=== PATIENT | male | born 1990 | race Caucasian/White ===

== ENCOUNTER 2017-06-07 08:18 | Emergency (ER) | payer OTHER ==
[~2017-06-07] VITALS: Ht 180.3 cm; Wt 93.0 kg
[2017-06-07] MEDS ORDERED: NS IV 1000 ML 1,000 ML IV SCH (09:15)
[2017-06-07] MEDS ORDERED: ONDANSETRON 4 MG/2 ML (SDV) Z0FRAN IVP ONE (09:15)
[2017-06-07] MEDS ORDERED: NS 100 ML (IVPB) BAG IV ONE (09:30)
[2017-06-07] MEDS ORDERED: IOHEXOL 350 MG/ML 100 ML (OMNIPAQUE 350) VIAL IV ONE (09:30)
[2017-06-07 09:31] LABS: BASOPHILS % (AUTO) 0 % (0-10); EOSINOPHILS # (AUTO) 0.1 10^3/uL (0.0-0.3); EOSINOPHILS % (AUTO) 1 % (0-10); HEMATOCRIT 44 % (40-54); HEMOGLOBIN 15.5 G/DL (13.3-17.7); LYMPHOCYTES # (AUTO) 1.2 X 10^3 (1.0-4.0); LYMPHOCYTES % (AUTO) 10 % (12-44); MEAN CORPUSCULAR HEMOGLOBIN 31 PG (25-34); MEAN CORPUSCULAR HGB CONC 35 G/DL (32-36); MEAN CORPUSCULAR VOLUME 87 FL (80-99); MEAN PLATELET VOLUME 9.6 FL (7.4-10.4); MONOCYTES # (AUTO) 0.6 X 10^3 (0.0-1.0); MONOCYTES % (AUTO) 5 % (0-12); NEUTROPHILS # (AUTO) 9.9 X 10^3 (1.8-7.8); NEUTROPHILS % (AUTO) 84 % (42-75); PLATELET COUNT 241 10^3/uL (130-400); RED BLOOD COUNT 5.05 10^6/uL (4.35-5.85); WHITE BLOOD COUNT 11.8 10^3/uL (4.3-11.0)
[2017-06-07 09:51] LABS: ALANINE AMINOTRANSFERASE 22 U/L (0-55); ALBUMIN 4.6 GM/DL (3.2-4.5); ALKALINE PHOSPHATASE 62 U/L (40-136); AMYLASE 42 U/L (25-125); BILIRUBIN,TOTAL 0.5 MG/DL (0.1-1.0); BUN/CREATININE RATIO 8; CALCIUM 9.8 MG/DL (8.5-10.1); CARBON DIOXIDE 26 MMOL/L (21-32); CHLORIDE 104 MMOL/L (98-107); CREATININE SERUM 1.32 MG/DL (0.60-1.30); GFR ESTIMATED > 60; GLUCOSE 120 MG/DL (70-105); POTASSIUM 4.7 MMOL/L (3.6-5.0); SODIUM 138 MMOL/L (135-145); TOTAL PROTEIN 7.9 GM/DL (6.4-8.2)
--- NOTE | 2017-06-07 10:29 | Diagnostic Imaging Report ---
PROCEDURE: CT abdomen and pelvis with contrast. TECHNIQUE: Multiple contiguous axial images were obtained through the abdomen and pelvis after administration of intravenous contrast. INDICATION: Left-sided abdominal pain. COMPARISON: None available. FINDINGS: Lower chest: The lung bases are clear. No pericardial or pleural effusion. Peritoneum: No free intraperitoneal air or fluid. Liver and biliary system: The liver is normal. The gallbladder is normal. No biliary duct dilation. Spleen and Pancreas: Spleen is normal. The pancreas enhances normally without mass lesion or peripancreatic inflammatory changes. Adrenals: Normal. tract: Mild to moderate left hydronephrosis and mild left hydroureter secondary to a 5 mm obstructing stone in the distal right ureter. Delayed enhancement and excretion in the left kidney is compatible with obstruction. The stone is located approximately 2-3 cm above the UVJ. There are potential additional bilateral nonobstructing renal calculi although this could represent early excretion of contrast material into the renal calyces. Prostate is normal. GI tract: Stomach is decompressed. No bowel obstruction. No pericolonic inflammatory changes. Normal appendix. Vasculature and Lymph nodes: Normal caliber aorta. No abdominal or pelvic lymphadenopathy. Musculoskeletal: No concerning osseous lesion. IMPRESSION: 1. Mild to moderate left hydronephrosis and hydroureter secondary to a 5 mm obstructing stone in the distal left ureter. The left kidney has delayed enhancement and excretion suggestive of potential high-grade obstruction. 2. There are potential additional nonobstructing bilateral renal stones, although these hyperdense foci could be due to early excretion of contrast material into the renal calyces. Dictated by: Dictated on workstation # [id number]
[2017-06-07] MEDS ORDERED: fentaNYL INJECTION 100 MCG/2 ML AMP IVP ONE (11:00)
[2017-06-07] MEDS ORDERED: cefTRIAXone INJECTION 1,000 MG in NS (IVPB) 50 ML IV ONE (11:00)
[2017-06-07] MEDS ORDERED: KETOROLAC 30 MG/ML VIAL IVP ONE (11:00)
[2017-06-07 11:03] LABS: BILIRUBIN,URINE NEGATIVE (NEGATIVE); CLARITY,URINE CLEAR; COLOR,URINE YELLOW; GLUCOSE, URINE (UA) NEGATIVE (NEGATIVE); KETONES,URINE NEGATIVE (NEGATIVE); LEUKOCYTE ESTERASE ,URINE NEGATIVE (NEGATIVE); NITRITE,URINE NEGATIVE (NEGATIVE); PH,URINE 8 (5-9); PROTEIN,URINE NEGATIVE (NEGATIVE); UROBILINOGEN,URINE NORMAL (NORMAL)
--- NOTE | 2017-06-07 11:04 | ED Abdominal Pain ---
General Chief Complaint: Abdominal/GI Problems Stated Complaint: STOMACH PAIN SINCE 3 AM Nursing Triage Note: Pt reports increasing abdominal pain with emesis the last 2 nights. Denies fever/chills. Sepsis Screen: No Definite Risk Source of Information: Patient Exam Limitations: No Limitations History of Present Illness Date Seen by Provider: Jun 07, 2017 Time Seen by Provider: 10:56 Initial Comments This 26-year-old male presents with complaint of abdominal pain with associated emesis for the last 2 nights he has had no associated fever or chills dysuria hematuria shortness of breath cough headache or stiff neck. Patient denies similar episodes in the past. Allergies and Home Medications Allergies Coded Allergies: No Known Drug Allergies (Unverified , 06/07/17) Review of Systems Constitutional: No chills, No fever EENTM: No Blurred Vision Respiratory: Denies Cough Cardiovascular: Denies Chest Pain Gastrointestinal: Abdominal Pain, Nausea, Vomiting Musculoskeletal: No back pain Skin: No rash Psychiatric/Neurological: No Symptoms Reported Endocrine: No Symptoms Reported Hematologic/Lymphatic: No Symptoms Reported Past Guwxobl-Jgajbc-Rhette Hx Patient Social History Alcohol Use: Occasionally Uses Recreational Drug Use: No Smoking Status: Current Everyday Smoker Recent Foreign Travel: No Contact w/Someone Who Travel: No Recent Infectious Disease Expo: No Surgeries History of Surgeries: No Respiratory History of Respiratory Disorde: No Cardiovascular History of Cardiac Disorders: No Neurological History of Neurological Disord: No Genitourinary History of Genitourinary Disor: No Gastrointestinal History of Gastrointestinal Di: No Musculoskeletal History of Musculoskeletal Dis: No Endocrine History of Endocrine Disorders: No HEENT History of HEENT Disorders: No Cancer History of Cancer: No Psychosocial History of Psychiatric Problem: No Integumentary History of Skin or Integumenta: No Blood Transfusions History of Blood Disorders: No Reviewed Nursing Assessment Reviewed/Agree w Nursing PMH: Yes Physical Exam Vital Signs VS - Last 72 Hours, by Label 06/07/17 06/07/17 06/07/17 08:41 11:11 11:11 Temp 97.2 97.2 97.2 Pulse 68 Resp 18 B/P (MAP) 131/94 (106) Pulse Ox 98 O2 Delivery Room Air Capillary Refill : Less Than 3 Seconds General Appearance: WD/WN, mild distress HEENT: normal ENT inspection Neck: normal inspection Respiratory: normal breath sounds Cardiovascular: regular rate, rhythm Gastrointestinal: normal bowel sounds, non tender, soft Extremities: normal range of motion, non-tender Back: normal inspection Neurologic/Psychiatric: no motor/sensory deficits, alert Skin: normal color, warm/dry Progress/Results/Core Measures Results/Orders Lab Results Laboratory Tests Test 06/07/17 09:20 06/07/17 10:57 Range/Units White Blood Count 11.8 H 4.3-11.0 10^3/uL Red Blood Count 5.05 4.35-5.85 10^6/uL Hemoglobin 15.5 13.3-17.7 G/DL Hematocrit 44 40-54 % Mean Corpuscular Volume 87 80-99 FL Mean Corpuscular Hemoglobin 31 25-34 PG Mean Corpuscular Hemoglobin Concent 35 32-36 G/DL Red Cell Distribution Width 12.0 10.0-14.5 % Platelet Count 241 130-400 10^3/uL Mean Platelet Volume 9.6 7.4-10.4 FL Neutrophils (%) (Auto) 84 H 42-75 % Lymphocytes (%) (Auto) 10 L 12-44 % Monocytes (%) (Auto) 5 0-12 % Eosinophils (%) (Auto) 1 0-10 % Basophils (%) (Auto) 0 0-10 % Neutrophils # (Auto) 9.9 H 1.8-7.8 X 10^3 Lymphocytes # (Auto) 1.2 1.0-4.0 X 10^3 Monocytes # (Auto) 0.6 0.0-1.0 X 10^3 Eosinophils # (Auto) 0.1 0.0-0.3 10^3/uL Basophils # (Auto) 0.0 0.0-0.1 10^3/uL Sodium Level 138 135-145 MMOL/L Potassium Level 4.7 3.6-5.0 MMOL/L Chloride Level 104 98-107 MMOL/L Carbon Dioxide Level 26 21-32 MMOL/L Anion Gap 8 5-14 MMOL/L Blood Urea Nitrogen 10 7-18 MG/DL Creatinine 1.32 H 0.60-1.30 MG/DL Estimat Glomerular Filtration Rate > 60 BUN/Creatinine Ratio 8 Glucose Level 120 H 70-105 MG/DL Calcium Level 9.8 8.5-10.1 MG/DL Total Bilirubin 0.5 0.1-1.0 MG/DL Aspartate Amino Transf (AST/SGOT) 21 5-34 U/L Alanine Aminotransferase (ALT/SGPT) 22 0-55 U/L Alkaline Phosphatase 62 40-136 U/L Total Protein 7.9 6.4-8.2 GM/DL Albumin 4.6 H 3.2-4.5 GM/DL Amylase Level 42 25-125 U/L Urine Color YELLOW Urine Clarity CLEAR Urine pH 8 5-9 Urine Specific [place] 1.010 L 1.016-1.022 Urine Protein NEGATIVE NEGATIVE Urine Glucose (UA) NEGATIVE NEGATIVE Urine Ketones NEGATIVE NEGATIVE Urine Nitrite NEGATIVE NEGATIVE Urine Bilirubin NEGATIVE NEGATIVE Urine Urobilinogen NORMAL NORMAL MG/DL Urine Leukocyte Esterase NEGATIVE NEGATIVE Urine RBC (Auto) 2+ H NEGATIVE Urine RBC 10-25 H /HPF Urine WBC 0-2 /HPF Urine Squamous Epithelial Cells 5-10 /HPF Urine Crystals NONE /LPF Urine Bacteria NEGATIVE /HPF Urine Casts NONE /LPF Urine Mucus NEGATIVE /LPF Urine Culture Indicated NO My Orders Orders - CHERI PUENTES MD Cbc With Automated Diff (06/07/17 09:06) Comprehensive Metabolic Panel (06/07/17 09:06) Ua Culture If Indicated (06/07/17 09:06) Amylase (06/07/17 09:06) Ns Iv 1000 Ml (Sodium Chloride 0.9%) (06/07/17 09:15) Ondansetron Injection (Zofran Injectio (06/07/17 09:15) Ct Abdomen/Pelvis W (06/07/17 09:22) Iohexol Injection (Omnipaque 350 Mg/Ml 1 (06/07/17 09:30) Ns (Ivpb) (Sodium Chloride 0.9% Ivpb Bag (06/07/17 09:30) Fentanyl Injection (Sublimaze Injection (06/07/17 11:00) Ketorolac Injection (Toradol Injection) (06/07/17 11:00) Tamsulosin Capsule (Flomax Capsule) (06/07/17 18:00) Ua Culture If Indicated (06/07/17 10:54) Abdomen/Kub 1view (06/07/17 10:54) Ceftriaxone Injection (Rocephin Injectio (06/07/17 11:00) Medications Given in ED Current Medications Medications Dose Ordered Sig/Kelsi Route Start Time Stop Time Status Last Admin Dose Admin Ceftriaxone Sodium 1000 mg/ Sodium Chloride 50 ml @ 100 mls/hr ONCE ONCE IV 06/07/17 11:00 06/07/17 11:29 DC 06/07/17 11:10 100 MLS/HR Fentanyl Citrate 50 mcg ONCE ONCE IVP 06/07/17 11:00 06/07/17 11:01 DC 06/07/17 11:11 50 MCG Iohexol 100 ml ONCE ONCE IV 06/07/17 09:30 06/07/17 09:53 DC 06/07/17 10:13 100 ML Ketorolac Tromethamine 30 mg ONCE ONCE IVP 06/07/17 11:00 06/07/17 11:01 DC 06/07/17 11:11 30 MG Ondansetron HCl 4 mg ONCE ONCE IVP 06/07/17 09:15 06/07/17 09:16 DC 06/07/17 09:19 4 MG Sodium Chloride 100 ml ONCE ONCE IV 06/07/17 09:30 06/07/17 09:53 DC 06/07/17 10:13 80 ML Vital Signs/I&O Vital Sign - Last 12Hours 06/07/17 06/07/17 06/07/17 08:41 11:11 11:11 Temp 97.2 97.2 97.2 Pulse 68 Resp 18 B/P (MAP) 131/94 (106) Pulse Ox 98 O2 Delivery Room Air Blood Pressure Mean: 106 Progress Note : Time: 10:[address] demonstrated a 5 mm obstructing distal left UVJ stone. Patient received IV fentanyl, Toradol, and IV fluids. Patient had a Flomax capsule orally. Telephone consultation with urology, , was undertaken. He recommended a KUB, urinalysis for culture and sensitivity, and a gram of Rocephin IV. This was done. His recommendation was that she be admitted if we were unable to control his pain adequately. The patient decided that he wanted to be treated at home. Prescriptions for Flomax and Percocet were sent with the patient. He was referred to Dr. Corbett and asked to call the office for close follow-up in the morning. Departure Impression Impression: Primary Impression: Kidney stone Disposition: 01 HOME, SELF-CARE Condition: Improved Departure-Patient Inst. Decision time for Depature: 12:11 Referrals: [facility] (PCP) Primary Care Physician WILNER CORBETT MD Patient Instructions: Kidney Stones in Adults Add. Discharge Instructions: Call Dr. Corbett's office in the morning for close follow up. Percocet and Flomax as prescribed. Come back if any problems. All discharge instructions reviewed with patient and/or family. Voiced understanding. CHERI PUENTES MD Jun 07, 2017 11:04
[2017-06-07 11:22] LABS: BACTERIA,URINE NEGATIVE /HPF; WBC,URINE 0-2 /HPF
--- NOTE | 2017-06-07 11:50 | Diagnostic Imaging Report ---
INDICATION: Left flank pain. COMPARISON: CT abdomen and pelvis performed earlier same day. FINDINGS: There is contrast material within the left renal collecting system including the renal pelvis and dilated ureter. A small amount of residual contrast material is present in the right renal collecting system. IMPRESSION: 1. There has been excretion of contrast from the left renal parenchyma into the mildly dilated collecting system, which is indicative of partial obstruction. Dictated by: Dictated on workstation # [id number]
[2017-06-07 12:27] VITALS: BP 130/88
[2017-06-07] MEDS ORDERED: TAMSULOSIN 0.4 MG (FLOMAX) CAP PO SCH (18:00)
== END 2017-06-07 12:27 | disposition home or self-care (01) ==
LOC: ER 08:20
DX: N20.0 Calculus of kidney (principal); F17.200 Nicotine dependence, unspecified, uncomplicated
CPT/HCPCS: 36415; 74018; 74177; 80053; 81000; 82150; 85025; 96361; 96365; 96375